=== PATIENT | male | born 1985 | race Caucasian/White ===

== ENCOUNTER 2017-05-06 06:41 | Emergency (ER) | payer SELFPAY ==
[2017-05-06] MEDS ORDERED: Metoclopramide HCl 10 MG TAB ONE (07:19)
[2017-05-06] MEDS ORDERED: Ketorolac Tromethamine 30 MG/ML VIAL ONE (07:19)
[2017-05-06] MEDS ORDERED: Metoclopramide HCl 10 MG/2 ML VIAL ONE (07:20)
[2017-05-06] MEDS ORDERED: diphenhydrAMINE HCl 50 MG/ML 1 ML VIAL ONE (07:20)
--- NOTE | 2017-05-06 08:16 | CT ---
HEAD CT WITHOUT CONTRAST: Date: 05/06/17 COMPARISON: None. HISTORY: Intermittent headache for 6 days. TECHNIQUE: Serial axial CT imaging at 5 mm intervals from vertex through skull base without contrast. FINDINGS: The imaged paranasal sinuses/mastoid air cells are well aerated. There is no displaced calvarial fra cture. There is no intracranial hemorrhage, midline shift, mass effect, or ventricular enlargement. IMPRESSION: No acute findings. POS: [facility]
[2017-05-06] MEDS ORDERED: Sodium Chloride 0.9% 1,000 ML BAG ONE (08:45)
[2017-05-06 10:46] LABS: CSF Source CSF; Tube # 1
[2017-05-06 10:47] LABS: Clarity Clear (Clear); RBC Count - Manual 150 /cumm (None Seen); WBC/NonHematics Count - Manual 0 /cumm (0-5)
[2017-05-06 10:49] LABS: CSF Source CSF; Clarity Clear (Clear); Tube # 4; WBC/NonHematics Count - Manual 1 /cumm (0-5)
[2017-05-06 10:50] LABS: RBC Count - Manual 1 /cumm (None Seen)
== END 2017-05-06 09:00 | disposition home or self-care (01) ==
LOC: MADERS 06:41
DX: G43.909 Migraine, unspecified, not intractable, without status migrainosus (principal); Z87.891 Personal history of nicotine dependence
CPT/HCPCS: 62270; 70450; 89051; 96361; 96374; 96375; J1200; J1885; J2765; J7050

== ENCOUNTER 2017-06-26 04:48 | Emergency (ER) | payer SELFPAY ==
[2017-06-26] MEDS ORDERED: Ketorolac Tromethamine 30 MG/ML VIAL ONE (05:11)
[2017-06-26] MEDS ORDERED: Ondansetron HCl/PF 4 MG/2 ML Vial ONE (05:11)
[2017-06-26 05:30] LABS: #Basophils 0.1 thou/uL (0.0-0.2); #Eosinphils 0.6 thou/uL (0.0-0.7); #Lymphocytes 2.7 thou/uL (1.20-3.40); #Monocytes 0.8 thou/uL (0.11-0.59); %Basophils 0.8 % (0.0-1.0); %Eosinophils 4.3 % (0.0-10.0); %Lymphocytes 20.2 % (21.0-51.0); %Monocytes 6.4 % (0.0-10.0); %Neutrophils 68.4 % (42.0-75.0); Hemoglobin 15.1 g/dL (14.0-18.0); Mean Corpuscular HGB CONC 33.8 g/dL (32.0-36.0); Mean Corpuscular Hemoglobin 31.5 pg (27.0-31.0); Mean Corpuscular Volume 93.4 fl (80.0-94.0); Mean Platelet Volume 7.3 fL (7.4-10.4); Platelet Count 314 thou/uL (130-400); RBC Distribution Width 11.6 % (11.5-14.5); Red Blood Cell (RBC) Count 4.79 mill/uL (4.70-6.10); White Blood Cell (WBC) Count 13.2 thou/uL (4.8-10.8)
[2017-06-26 05:49] LABS: ALT (SGPT) 31 U/L (8-55); AST (SGOT) 24 U/L (5-34); Alkaline Phosphatase 74 U/L (40-150); Anion Gap 16 mmol/L (10-20); BUN (Urea Nitrogen) 20 mg/dL (8.9-20.6); Bilirubin, Total 0.5 mg/dL (0.2-1.2); Calc. Creatinine Clearance 0 mL/min (70-130); Calcium 9.3 mg/dL (7.8-10.44); Carbon Dioxide 19 mmol/L (22-29); Chloride 109 mmol/L (98-107); Estimated GFR-MDRD 55; Globulin 3.7 g/dL (2.4-3.5); Glucose 145 mg/dL (70-105); Lipase 14 U/L (8-78); Potassium 3.9 mmol/L (3.5-5.1); Protein, Total 7.7 g/dL (6.0-8.3); Sodium 140 mmol/L (136-145)
[2017-06-26 05:52] LABS: CKMB 1.4 ng/mL (0-6.6); Troponin I Less than 0.010 ng/mL (< 0.028)
[2017-06-26] MEDS ORDERED: Sodium Chloride 0.9% 1,000 ML BAG ONE (07:17)
[2017-06-26 07:34] LABS: Bacteria/HPF None Seen HPF (None Seen); Bilirubin Negative (Negative); Blood, Urine Moderate (Negative); Clarity Clear (Clear); Glucose, Urine (Dipstick) Negative (Negative); Leukocyte Negative (Negative); Nitrite Negative (Negative); Protein, Urine (Dipstick) Negative (Neg-Trace); Squamous Epithelial None Seen HPF (0-3); Urobilinogen 0.2 mg/dL (0.2-1.0); WBC/HPF None Seen HPF (0-3); pH, Urine 5.5 (5.0-9.0)
--- NOTE | 2017-06-26 08:01 | RAD ---
EXAM: ONE VIEW CHEST: HISTORY: Acute abdominal pain. COMPARISON: None. FINDINGS: Normal cardiac silhouette. The pulmonary vessels and hilum are normal. Costophrenic angles are pedro pablo ar. No mass. No consolidation. No pneumothorax or osseous abnormality. IMPRESSION: No acute cardiopulmonary process. POS: [facility]
--- NOTE | 2017-06-26 09:15 | CT ---
PRELIMINARY REPORT/[facility]/EMERGENCY AFTER HOURS PROCEDURE: EXAM: CT Abdomen and Pelvis With Intravenous Contrast CLINICAL HISTORY: 31 years old, male; Pain; Abdominal pain; Acute; Patient HX: Woke up this morning with sudden diffus e abdominal pain; Additional info: Na TECHNIQUE: Axial computed tomography images of the abdomen and pelvis with intravenous contrast. This CT exam w as performed using one or more of the following dose reduction techniques: automated exposure contro l, adjustment of the mA and/or kV according to patient size, and/or use of iterative reconstruction technique. Coronal reformatted images were created and reviewed. CONTRAST: 100 mL of ISOVUE administered intravenously. COMPARISON: No relevant prior studies available. FINDINGS: Lower thorax: No acute findings. ABDOMEN: Liver: Unremarkable. No mass. Gallbladder and bile ducts: Unremarkable. No calcified stones. No ductal dilation. Pancreas: Unremarkable. No mass. No ductal dilation. Spleen: Unremarkable. No splenomegaly. Adrenals: Unremarkable. No mass. Kidneys and ureters: Mild left hydroureteronephrosis secondary to a 4 x 2 mm distal left ureteral ca lculus. Faint left renal calculi in the mid pole. Right renal cyst noted Stomach and bowel: Unremarkable. No obstruction. No mucosal thickening. Appendix: No findings to suggest acute appendicitis. PELVIS: Bladder: Unremarkable. No mass. Reproductive: Unremarkable as visualized. ABDOMEN and PELVIS: Intraperitoneal space: Unremarkable. No free air. No significant fluid collection. Bones/joints: No acute fracture. No dislocation. Soft tissues: Unremarkable. Vasculature: Unremarkable. No abdominal aortic aneurysm. Lymph nodes: Unremarkable. No enlarged lymph nodes. IMPRESSION: Mild left obstructive uropathy secondary to a 4x2 mm distal left ureteral calculus Faint left renal calculi Thank you for allowing us to participate in the care of your patient. Dictated and Authenticated by: Bhavin Michelle MD 06/26/2017 6:47 AM Central Time ([place] \T\ [place]) FINAL REPORT ABDOMEN CT WITH CONTRAST PELVIC CT WITH CONTRAST: History: Patient woke up with diffuse abdominal pain this morning. Comparison: None. Technique: Abdomen and pelvic CT performed with IV contrast. Oral contrast was not administered. Cor onal reformatted images are submitted for interpretation. FINDINGS: This report is in agreement with the preliminary report by [facility]. There is mild left sided obstructive uropathy secondary to a distal left ureteral calculus. There are few scattered nonspecific lymph no renu in the abdominal mesentery. Lymph nodes are presumed to be reactive. There is a nonobstructing calcification in the left renal pelvis. Normal caliber appendix is identified. POS: [facility]
[2017-06-26] MEDS ORDERED: Iopamidol 370 76% 100 ML VIAL ONE (09:36)
== END 2017-06-26 07:15 | disposition home or self-care (01) ==
LOC: MADERS 04:48
DX: N13.2 Hydronephrosis with renal and ureteral calculous obstruction (principal); Z87.891 Personal history of nicotine dependence
CPT/HCPCS: 36415; 71010; 74177; 80053; 81001; 82150; 82553; 83690; 84484; 85025; 86140; 87086; 93005; 94760; 96361; 96374; 96375; 96376; J1885; J2270; J2405; J7050